=== PATIENT | female | born 1995 | race Caucasian/White ===

== ENCOUNTER 2024-01-02 21:02 | Emergency (ER) | payer MEDICAID, SELFPAY ==
[2024-01-02 21:06] VITALS: BP 112/64; PULSE 55; RESP 18; TEMP 35.9; O2SAT 99; BMI 29.2
--- NOTE | 2024-01-02 21:13 | ED_ITS ---
HPI - General Adult General Date Seen: 01/02/24 Chief complaint: Ear/Nose/Throat Problem Stated complaint: L ear poss infection Time Seen by Provider: 01/02/24 21:10 History of Present Illness HPI narrative: This is a pleasant generally healthy 28-year-old female. She is not currently on any medications but she does have a history of ear infections since childhood. Last ear infection was probably couple of years ago. She did have a URI last week but developed left ear pain and fullness a couple of nights ago. She is having left ear pain, muffled hearing, and some ringing in her ear. No other symptoms. No fever. No headache. No right ear pain. No sore throat. No cough. No trouble breathing. She is not diabetic or immunosuppressed. No allergies. Related Data Home Medications Medication Instructions Recorded Confirmed No Known Home Medications 01/02/24 01/02/24 Allergies Allergy/AdvReac Type Severity Reaction Status Date / Time No Known Drug Allergies Allergy Verified 01/02/24 21:09 PFSH PFS Social History Smoking Status: Former smoker Do you use any of these nicotine containing products: None Second hand tobacco smoke exposure: No How often do you have a drink containing alcohol: monthly or less AUDIT-C Alcohol total score: 1 Non-prescribed substance use: denies use Exam Narrative: Exam Narrative: Constitutional: Appears well-developed and well-nourished. Alert. Conversant. Non toxic. HENT: Head: Atraumatic. Nose: Nose normal. Mouth/Throat: Oral mucosa is clear and moist. no trismus. Pharynx normal. Tonsils symmetric. No tonsillar enlargement, erythema, or exudate. Right ear: Mastoid, pinna, canal, TM normal. Left ear: Mastoid, pinna, canal normal. TM is erythematous and bulging. There is some fluid behind the TM. No sign of rupture. Eyes: Conjunctivae normal. EOM normal. Pupils equal, round, and reactive to light. No scleral icterus. Neck: Normal range of motion. Neck supple. No tracheal deviation present. Cardiovascular: Normal rate, regular rhythm. No gallop. No friction rub. No murmur heard. Symmetric radial artery pulses Pulmonary/Chest: Effort normal. No stridor. No respiratory distress. No wheezes. No rales. No rhonchi . Musculoskeletal: No deformity. No tenderness. Lymph: No cervical adenopathy. Neurological: Alert and oriented to person, place, and time. Normal strength. CN II-VII intact. No sensory deficit. GCS eye subscore is 4. GCS verbal subscore is 5. GCS motor subscore is 6. Normal coordination Skin: Skin is warm and dry. No rash noted. No pallor. Normal capillary refill. Psychiatric: Normal mood. Normal affect. Const: Vital Signs, click to edit/add: Vital Signs - 24 hr 01/02/24 21:06 Temperature 96.6 F L Pulse Rate [Pulse Oximeter] 55 L Respiratory Rate 18 Blood Pressure [Ri ght Upper Arm] 112/64 Pulse Oximetry 99 Oxygen Delivery Me thod Room Air Course Vital Signs Vital signs: Initial Vital Signs Temperature 96.6 F L 01/02/24 21:06 Temperature Source Temporal Artery Scan 01/02/24 21:06 Pulse Rate 55 L 01/02/24 21:06 Respiratory Rate 18 01/02/24 21:06 Blood Pressure 112/64 01/02/24 21:06 Blood Pressure Mean 80 01/02/24 21:06 Blood Pressure Position Sitting 01/02/24 21:06 Pulse Oximetry 99 01/02/24 21:06 Oxygen Delivery Method Room Air 01/02/24 21:06 Vital Signs Temperature 96.6 F L 01/02/24 21:06 Pulse Rate 55 L 01/02/24 21:06 Respiratory Rate 18 01/02/24 21:06 Blood Pressure 112/64 01/02/24 21:06 Pulse Oximetry 99 01/02/24 21:06 Oxygen Delivery Method Room Air 01/02/24 21:06 Temperature 96.6 F L 01/02/24 21:06 Pulse Rate 55 L 01/02/24 21:06 Respiratory Rate 18 01/02/24 21:06 Blood Pressure 112/64 01/02/24 21:06 Pulse Oximetry 99 01/02/24 21:06 Oxygen Delivery Method Room Air 01/02/24 21:06 Medical Decision Making MDM Narrative Medical decision making narrative: This patient presents for evaluation of left ear pain. The patient has an exam consistent with acute otitis media. There is no sign of mastoiditis, meningitis, perforation, mass, dental abscess, or peritonsillar abscess. There is no evidence of otitis externa. No foreign body. The patient will be started on antibiotics and may take Tylenol or Ibuprofen for pain. Return if increasing pain, fever, decrease in hearing, swelling or pain of the mastoid, ear discharge, or severe headache. Follow-up with primary physician in 7-10 days, if symptoms persist. Instymeds for amoxicillin 1000 mg b.i.d. for 10 days. Discharge Plan Discharge Clinical Impression: Otitis media Patient Disposition: Home, Self-Care Condition: Stable Instructions: Ear Infection (ED) Additional Instructions: As we discussed, please come back to the ER right away if you have worsening pain, bleeding or drainage from your here, high fever, severe headache, or if you have any concerns. Use ibuprofen or Tylenol if needed for pain. Use the antibiotics twice daily for 10 days. Please follow-up for recheck with her regular doctor within 7-10 days. Prescriptions: No Action No Known Home Medications Follow Up/Referrals: Xenia Mak PA-C [Primary Care Provider] - Stand Alone Forms: [facility] Info Instructions
== END 2024-01-02 21:38 | disposition home or self-care (01) ==
PROVIDERS: Emergency Provider Emergency Medicine; PCP Physician Assistant Medical
DX: H66.92 Otitis media, unspecified, left ear (principal)
CPT/HCPCS: 99281; 99283